=== PATIENT | female | born 1980 | race Hispanic/Latino ===

== ENCOUNTER 2023-07-13 17:56 | Observation (INO) | payer SELFPAY ==
[2023-07-13 18:26] LABS: #Eosinphils 0.1 thou/uL (0.0-0.7); #Monocytes 0.4 thou/uL (0.11-0.59); #Neutrophils 3.7 thou/uL (1.40-6.50); %Basophils 0.5 % (0.0-1.0); %Eosinophils 1.8 % (0.0-10.0); %Lymphocytes 33.1 % (21.0-51.0); %Monocytes 5.8 % (0.0-10.0); %Neutrophils 58.5 % (42.0-75.0); Hematocrit 19.6 % (36.0-47.0); Hemoglobin 4.8 g/dL (12.0-16.0); Mean Corpuscular Hemoglobin 13.2 pg (27.0-31.0); Mean Corpuscular Volume 53.7 fl (78.0-98.0); Mean Platelet Volume 9.5 fL (7.4-10.4); Platelet Count 322 10x3/uL (130-400); RBC Distribution Width 21.5 % (11.5-14.5); Red Blood Cell (RBC) Count 3.65 mill/uL (4.20-5.40); White Blood Cell (WBC) Count 6.2 10x3/uL (4.8-10.8)
[2023-07-13 18:39] LABS: Mean Corpuscular HGB CONC 24.5 g/dL (32.0-36.0)
[2023-07-13 18:49] LABS: ALT (SGPT) 9 U/L (8-55); AST (SGOT) 14 U/L (5-34); Albumin 4.2 g/dL (3.5-5.0); Alkaline Phosphatase 78 U/L (40-110); Anion Gap 12 mmol/L (10-20); BUN (Urea Nitrogen) 7 mg/dL (7.0-18.7); Bilirubin, Total 0.5 mg/dL (0.2-1.2); Calc. Creatinine Clearance 0 mL/min (70-130); Calcium 8.7 mg/dL (7.8-10.44); Carbon Dioxide 23 mmol/L (22-29); Chloride 106 mmol/L (98-107); Estimated GFR 107; Globulin 3.8 g/dL (2.4-3.5); Glucose 101 mg/dL (70-105); Iron 9 ug/dL (50-170); Iron Binding Capacity, Total 439 mcg/dL (265-497); Potassium 3.1 mmol/L (3.5-5.1); Sodium 138 mmol/L (136-145)
[2023-07-13 19:01] LABS: Anisocytosis SLIGHT = 6-15 cells HPF (0-5); CellaVision Operator ID LAB.KB; Elliptocytes SLIGHT = 2-5 cells HPF (0-1); Hypochromia MODERATE=16-30 cells HPF (0-5); Microcytosis MODERATE=15-30 cells HPF (0-5); Platelet Adequacy Comment Platelets Normal; Polychromasia SLIGHT = 2-3 cells HPF (0-2); Reflex for Review?? YES
[2023-07-13 19:05] LABS: INR-International Normal Ratio 1.1; PTT 28.2 sec (22.9-36.1); Prothrombin Time 14.3 sec (12.0-14.7)
[2023-07-13] MEDS ORDERED: Acetaminophen 325 MG TAB PO PRN (21:00)
[2023-07-13] MEDS ORDERED: Ondansetron ODT 4 MG TAB SL PRN (21:00)
[2023-07-13] MEDS ORDERED: Ondansetron PF 4 MG/2 ML Vial IVP PRN (21:00)
[2023-07-13] MEDS ORDERED: Senokot S 8.6-50 MG TAB PO PRN (22:21)
[2023-07-13] MEDS ORDERED: Calcium Carbonate 500 MG ChewTAB PO PRN (22:21)
[2023-07-13] MEDS ORDERED: Iron, Sodium Ferric Gluconate 250 MG in Sodium Chloride 0.9% 250 ML 250 ML IVPB SCH (22:45)
[2023-07-13 23:49] VITALS: BMI 37.4
[2023-07-14 06:09] LABS: #Basophils 0.1 thou/uL (0.0-0.2); #Eosinphils 0.2 thou/uL (0.0-0.7); #Monocytes 0.7 thou/uL (0.11-0.59); #Neutrophils 7.1 thou/uL (1.40-6.50); %Basophils 0.5 % (0.0-1.0); %Eosinophils 2.2 % (0.0-10.0); %Lymphocytes 18.2 % (21.0-51.0); %Monocytes 6.9 % (0.0-10.0); %Neutrophils 71.8 % (42.0-75.0); Hematocrit 23.8 % (36.0-47.0); Hemoglobin 6.3 g/dL (12.0-16.0); Mean Corpuscular HGB CONC 26.5 g/dL (32.0-36.0); Mean Corpuscular Hemoglobin 15.6 pg (27.0-31.0); Platelet Count 305 10x3/uL (130-400); RBC Distribution Width 27.3 % (11.5-14.5); Red Blood Cell (RBC) Count 4.03 mill/uL (4.20-5.40); White Blood Cell (WBC) Count 9.9 10x3/uL (4.8-10.8)
[2023-07-14 06:34] LABS: Mean Corpuscular Volume 59.1 fl (78.0-98.0)
[2023-07-14] MEDS: Famotidine 20 MG TAB PO SCH ×2 (09:34→22:28)
[2023-07-14] MEDS: Iron, Sodium Ferric Gluconate 250 MG in Sodium Chloride 0.9% 250 ML 250 ML IVPB SCH ×2 (09:54→22:28)
[2023-07-14 11:46] LABS: Calcium 8.5 mg/dL (7.8-10.44); Chloride 109 mmol/L (98-107); Glucose 88 mg/dL (70-105); Potassium 3.1 mmol/L (3.5-5.1); Sodium 141 mmol/L (136-145)
[2023-07-14 11:48] LABS: Anion Gap 13 mmol/L (10-20); Carbon Dioxide 22 mmol/L (22-29)
[2023-07-14 11:50] LABS: Calc. Creatinine Clearance 158 mL/min (70-130); Estimated GFR 99
[2023-07-14 11:51] LABS: BUN (Urea Nitrogen) 8 mg/dL (7.0-18.7)
[2023-07-14] MEDS ORDERED: Potassium Chloride 20 MEQ TAB PO SCH (14:45)
[2023-07-14 17:34] LABS: Hematocrit 26.7 % (36.0-47.0); Hemoglobin 7.5 g/dL (12.0-16.0); Platelet Count 315 10x3/uL (130-400)
[2023-07-15] MEDS: Famotidine 20 MG TAB PO SCH (08:21)
[2023-07-15 08:51] VITALS: BP 124/82; TEMP 98
== END 2023-07-15 12:00 | disposition home or self-care (01) ==
LOC: ERS 17:56 → T4-B 20:55
PROVIDERS: ADMIT Student in an Organized Health Care Education/Training Program; ATTEND Internal Medicine
DX: N92.0 Excessive and frequent menstruation with regular cycle (principal); D50.9 Iron deficiency anemia, unspecified; D62 Acute posthemorrhagic anemia; I10 Essential (primary) hypertension
CPT/HCPCS: 36415; 36430; 76856; 80048; 80053; 82728; 83540; 83550; 85025; 85060; 85610; 85730; 86850; 86900; 86901; 96374; 99284; G0378; J2916; J7050; P9016